=== PATIENT | female | born 2005 | race Caucasian/White ===

== ENCOUNTER 2024-02-13 00:54 | Emergency (ER) | payer MEDICAID ==
[~2024-02-13] VITALS: Ht 152.4 cm; Wt 66.0 kg
[2024-02-13 00:57] VITALS: O2SAT 100
[2024-02-13 02:54] LABS: CLARITY URINE CLEAR (CLEAR); COLOR URINE YELLOW (YELLOW); GLUCOSE URINE NEGATIVE (NEGATIVE); KETONES URINE NEGATIVE (NEGATIVE); LEUKOCYTE ESTERASE URINE NEGATIVE (NEGATIVE); NITRITE URINE NEGATIVE (NEGATIVE); OCCULT BLOOD URINE NEGATIVE (NEGATIVE); PROTEIN URINE NEGATIVE (NEGATIVE); SPECIFIC GRAVITY URINE 1.022 (1.005-1.030); UROBILINOGEN URINE 0.2 E.U./dL (0.2-1.0)
[2024-02-13] MEDS ORDERED: METR-167 MT (02:57)
[2024-02-13 03:17] VITALS: BP 140/60; PULSE 78; RESP 13; TEMP 98.2
== END 2024-02-13 03:19 | disposition home or self-care (01) ==
LOC: ER 00:54
DX: N76.0 Acute vaginitis (principal)
CPT/HCPCS: 81003; 99284